=== PATIENT | male | born 1970 | race Caucasian/White ===

== ENCOUNTER 2020-02-14 16:18 | Emergency (ER) | payer BC, SELFPAY ==
[2020-02-14 16:29] VITALS: BP 141/97; PULSE 80; RESP 16; TEMP 37.6; O2SAT 97
--- NOTE | 2020-02-14 16:43 | ED.LOWEXIN ---
HPI - Extremity Injury (Lower) General Chief Complaint: Extremity Injury, Lower Stated Complaint: right knee/leg injury from fall through joists Time Seen by Provider: 02/14/20 16:36 Source: patient Mode of arrival: Ambulatory Limitations: no limitations History of Present Illness HPI Narrative: 49-year-old male here for evaluation of right knee injury. 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 He states that he felt and heard a ?pop? went to an outside facility. Had x-rays performed which showed no fractures. He did sustain a left hand navicular fracture but that is not why he is here in this emergency department today. He states that since that time he has had increasing pain and swelling to his right knee. Has a follow-up with Orthopedics next week. He has had compartment syndrome in the past and he was concerned about that. He also has swelling and redness and pain to the outside of the right knee. Several abrasions on his right knee as well. Does have pain medication at home which he has been taking. Related Data Previous Rx's Medication Instructions Recorded cephalexin [Keflex] 500 mg PO QID 10 Days #40 cap 02/14/20 Review of Systems Constitutional Constitutional: Denies fever(s), Denies headache(s) and Denies weakness ENT Ears, Nose, Mouth, and Throat: Denies headache(s) Musculoskeletal Musculoskeletal: Reports arthralgias (Right knee pain) and Denies tingling Integumentary/Breasts Comments: Redness and warmth around the right knee Neurologic Neurologic: Denies headache(s), Denies tingling and Denies weakness Hematologic/Lymphatic Hematologic/Lymphatic: Denies easy bleeding and Denies easy bruising Allergic/Immunologic Allergic/Immunologic: Denies urticaria Patient History Medical History Healthy adult (Acute) Social History Smoking Status: Never smoker Smoking Status: Never smoker alcohol intake frequency: a few times a month Substance Use Type: does not use Exam Initial Vital Signs Initial Vital Signs: Vital Signs Temperature 99.7 F H 02/14/20 16:29 Pulse Rate 80 02/14/20 16:29 Respiratory Rate 16 02/14/20 16:29 Blood Pressure 141/97 H 02/14/20 16:29 Pulse Oximetry 97 02/14/20 16:29 Const General: cooperative, healthy appearing and comfortable [facility] Head: normal to inspection and normocephalic Cardio Pulses: dorsalis pedis present on the right Skin Other: Warmth and redness to the front of the right knee and also the lateral the right knee. Also has warmth over this area. Also has multiple abrasions on the front of his leg covered with scabs. Neuro Sensory Exam: no sensory deficits noted Extrem Other: Right ankle unremarkable. The compartments of his right lower extremity are soft. He has no pain with passive flexion extension of his right foot. Ramirez's test does feel to be positive. MCL and LCL appear to be intact. Psych Appearance: grossly normal and well kempt Course Orders Ordered: ED Orders 02/14/20 16:43 XR knee RT 3V Stat Vital Signs Vital signs: Vital Signs - 8 hr 02/14/20 16:29 02/14/20 17:48 Temperature 99.7 F H Pulse Rate 80 70 Respiratory Rate 16 16 Blood Pressure 141/97 H Blood Pressure [Left Arm] 125/75 Pulse Oximetry 97 95 MDM - Extremity Injury (Lower) Imaging Data Extremity x-ray #1: Radiologist's Impression: [place] [address] XRay Report Signed Patient: Hill Longoria#: [id number] : 1970Acct:[id number] Age/Sex: 49 / MDate of Service: 02/14/20 Loc: ED Accession Number: [id number] Procedure: XR knee RT 3V Ordering Provider: Gunnar Mccartney D.O. PROCEDURE: XR KNEE RT 3V INDICATIONS: pain after fall on tuesday TECHNIQUE: 3 views of the knee were acquired. COMPARISON: [facility], , KNEE MIN 4VW (RT), 01/02/2013, 10:37. FINDINGS: Bones: No acute fracture or dislocation. Postoperative changes are redemonstrated similar to the study from 01/02/13. There is a small patellar enthesophyte at tricompartmental osteophytes. Soft tissues: No joint effusion. Chondrocalcinosis is present at the femorotibial joint space. IMPRESSION: 1. No acute radiographic findings. 2. Osteoarthritis. 3. Chondrocalcinosis. Differential diagnosis includes but is not limited to hemochromatosis, hyperparathyroidism and CPPD. Dictated by: Melina Oliva M.D. on 02/14/2020 at 17:04 Approved by: Melina Oliva M.D. on 02/14/2020 at 17:06 [facility] Narrative Medical decision making narrative: Repeat x-ray today shows no acute fracture. He does have an effusion to his right knee. I suspect that this is a hemarthrosis. He also has redness and warmth over the lateral aspect. Given the fact he did break the skin during this incident there was concern about an infection. Will start him on antibiotics. The medial aspect of his knee does not have any redness. We did discuss a arthrocentesis however we discussed the high concern about introducing infection given the look of the rest of his knee. I advised that we do not do this. Patient expressed understanding and agreed not to have this done. He has pain medication and crutches and with braces at home. He has a follow-up next week. Informed him that unfortunately would be unable to get an MRI for him at emergency department this evening. He was given return precautions. Will send home with antibiotics. Was given return precautions and follow-up instructions. Discharge Plan Departure Patient Disposition: Home Clinical Impression: Effusion of knee joint right Cellulitis Qualifiers: Site of cellulitis: extremity Site of cellulitis of extremity: lower extremity Laterality: right Qualified Code(s): L03.115 - Cellulitis of right lower limb Discharge Date/Time: 02/14/20 17:50 Instructions: DI for Knee Effusion Activity Restrictions/Additional Instructions: Keep all of your scheduled medical appointments. Take the antibiotic as directed. Use the knee brace/immobilizer as needed like we discussed. Return to the emergency department for any new or worsening symptoms Prescriptions: New cephalexin [Keflex] 500 mg capsule 500 mg PO QID 10 Days Qty: 40 RF: 0
[2020-02-14 17:48] VITALS: BP 125/75; PULSE 70; RESP 16; O2SAT 95
== END 2020-02-14 17:50 | disposition home or self-care (01) ==
PROVIDERS: Emergency Provider Emergency Medicine
DX: L03.115 Cellulitis of right lower limb (principal); M25.461 Effusion, right knee; W19.XXXA Unspecified fall, initial encounter
CPT/HCPCS: 73562; 99283